=== PATIENT | female | born 1960 | race Caucasian/White ===

== ENCOUNTER 2022-11-13 08:29 | Outpatient (CLI) | payer OTHER | END 2022-11-13 08:30 | disposition home or self-care (01) | LOC: CSHMAMMO 08:29 | PROVIDERS: ATTEND Family Medicine | DX: Z12.31 Encounter for screening mammogram for malignant neoplasm of breast (principal) | CPT/HCPCS: 77063; 77067 ==

== ENCOUNTER 2023-11-24 08:48 | Outpatient (CLI) | payer OTHER | END 2023-11-24 08:49 | disposition home or self-care (01) | LOC: CSHMAMMO 08:48 | PROVIDERS: ATTEND Family Medicine | DX: Z12.31 Encounter for screening mammogram for malignant neoplasm of breast (principal) | CPT/HCPCS: 77063; 77067 ==

== ENCOUNTER 2024-11-24 09:14 | Outpatient (CLI) | payer OTHER | END 2024-11-24 09:15 | disposition home or self-care (01) | LOC: CSHMAMMO 09:14 | PROVIDERS: ATTEND Family Medicine | DX: Z12.31 Encounter for screening mammogram for malignant neoplasm of breast (principal) | CPT/HCPCS: 77063; 77067 ==